=== PATIENT | female | born 1990 ===

== ENCOUNTER 2018-11-12 04:06 | Inpatient (IN) | payer OTHER ==
[2018-11-12] MEDS ORDERED: PITOCin/NS 20 UNIT/1000ML DRIP 20,000 MILLIUNITS/1,000 ML BAG IV ONE (04:45)
[2018-11-12 05:07] LABS: Basophils % (Auto) 0.3 % (0.0-1.8); Eosinophils # (Auto) 0.1 K/mm3 (0.0-0.4); Eosinophils % (Auto) 0.9 % (0.0-4.3); Hematocrit 35.3 % (30.3-42.9); Hemoglobin 12.3 gm/dl (10.1-14.3); Lymphocytes # (Auto) 3.3 K/mm3 (1.2-5.4); Lymphocytes % (Auto) 27.1 % (13.4-35.0); Mean Corpuscular HGB Conc 35 % (30-34); Mean Corpuscular Volume 87 fl (79-97); Monocytes # (Auto) 0.7 K/mm3 (0.0-0.8); Platelet Count 181 K/mm3 (140-440); Red Blood Count 4.05 M/mm3 (3.65-5.03); Red Cell Distribution Width 13.8 % (13.2-15.2)
--- NOTE | 2018-11-12 05:21 | History and Physical Report ---
History of Present Illness Date of examination: 11/12/18 Date of admission: 11/12/18 04:15 Chief complaint: contractions History of present illness: 28y/o @ 40+2 weeks presents in active labor with advanced cervical dilation of 10cm intact. The patient is from [place] and has not established care in the [facility]. She denies any complications during this . GBS is unknown. Past History Past Medical History: no pertinent history Past Surgical History: no surgical history Social history: single - Obstetrical History Expected Date of Delivery: 11/10/18 Actual Gestation: 40 Week(s) 2 Day(s) : 3 Para: 2 Hx # Term Pregnancies: 2 Number of Pregnancies: 0 Spontaneous Abortions: 0 Induced : 0 Number of Living Children: 2 Medications and Allergies Allergies Allergy/AdvReac Type Severity Reaction Status Date / Time No Known Allergies Allergy Unverified 11/12/18 04:50 Review of Systems All systems: negative Genitourinary: pelvic pain, contractions - Vital Signs Vital signs: Vital Signs Pulse BP 77 114/55 11/12/18 05:15 11/12/18 05:15 Temp Pulse Resp BP Pulse Ox 77 114/55 11/12/18 05:15 11/12/18 05:15 - Physical Exam Breasts: Positive: deferred Cardiovascular: Regular rate Lungs: Positive: Clear to auscultation Abdomen: Positive: normal appearance Results Result Diagrams: 11/12/18 04:25 Abnormal lab results 11/12/18 Range/Units 04:25 WBC 12.1 H (4.5-11.0) K/mm3 MCHC 35 H (30-34) % Seg Neutrophils # 7.9 H (1.8-7.7) K/mm3 All other labs normal. Assessment and Plan - Patient Problems (1) Active labor at term Current Visit: Yes Status: Acute Plan to address problem: admit to L&D
--- NOTE | 2018-11-12 05:24 | Procedure Note ---
OB Delivery Note - Delivery Date of Delivery: 11/12/18 Surgeon: MEG RODRIGUEZ Estimated blood loss: 100cc - Vaginal Delivery presentation: vertex Delivery position: OA Intrapartum events: none Delivery induction: AROM Delivery monitor: external FHT, external uterine Route of delivery: Delivery placenta: spontaneous Delivery cord: 3 umbilical vessels Episiotomy: none Delivery laceration: none Anesthesia: none Delivery comments: Patient progressed to C/C/+1 after AROM of clear fluid. She pushed to deliver a liveborn male with apgars of 9/9 with a weight of 8lbs 0oz. The shoulders delivered without difficulty. The infant was bulb suctioned. The cord was clamped and cut and the placed on the patient's abdomen. The placenta delivered spontaneously intact with a 3VC. No lacerations noted. EBL 100ml. - Infant A at 1 minute: 9 at 5 minutes: 9 Infant Gender: Male (weight 8lbs 0oz)
[2018-11-12] MEDS ORDERED: PHENERGAN PR PRN (05:28)
[2018-11-12] MEDS ORDERED: NORCO 5/325 PO PRN (05:28)
[2018-11-12] MEDS ORDERED: MILK OF MAGNESIA PO PRN (05:28)
[2018-11-12] MEDS ORDERED: PHENERGAN PO PRN (05:28)
[2018-11-12] MEDS ORDERED: BENADRYL PO PRN (05:28)
[2018-11-12] MEDS ORDERED: LANSINOH TP PRN (05:28)
[2018-11-12] MEDS ORDERED: ZOFRAN IV PRN (05:28)
[2018-11-12] MEDS ORDERED: TYLENOL PO PRN (05:28)
[2018-11-12] MEDS ORDERED: TUCKS PAD TP PRN (05:28)
[2018-11-12] MEDS ORDERED: DULCOLAX PR PRN (05:28)
[2018-11-12 05:30] LABS: Hepatitis C Virus Antibody Non-Reactive (NonReactive)
[2018-11-12] MEDS ORDERED: SODIUM CHLORIDE FLUSH SYRINGE 10 ML IV PRN (06:00)
[2018-11-12] MEDS: IBUPROFEN PO SCH ×3 (06:04→20:23)
[2018-11-12 16:33] LABS: Amphetamine Screen,Urine PRESUMPTIVE NEGATIVE; Benzodiazepines Screen,Urine PRESUMPTIVE NEGATIVE; Cannabinoid Screen,Urine PRESUMPTIVE NEGATIVE; Cocaine Screen,Urine PRESUMPTIVE NEGATIVE; Methadone Screen,Urine PRESUMPTIVE NEGATIVE; Opiate Screen,Urine PRESUMPTIVE NEGATIVE
[2018-11-12 18:26] LABS: Hematocrit 28.6 % (30.3-42.9); Hemoglobin 10.4 gm/dl (10.1-14.3)
[2018-11-13] MEDS: IBUPROFEN PO SCH ×4 (01:31→18:08)
--- NOTE | 2018-11-13 12:45 | Progress Note ---
Assessment and Plan - Patient Problems (1) Active labor at term Current Visit: Yes Status: Acute Plan to address problem: patient doing well discharge home Subjective - Subjective Date of service: 11/13/18 Interval history: Patient without complaints. Lochia is minimal. Patient reports: appetite normal, voiding normally, pain well controlled [place]: doing well Objective - Vital Signs Latest vital signs: Vital Signs Temp Pulse Resp BP BP Pulse Ox 11/13/18 07:37 98.1 F 74 20 96/52 96 11/13/18 00:21 98.2 F 78 20 120/77 97 11/12/18 20:23 18 11/12/18 16:48 98.1 F 63 18 127/68 Intake and Output 11/12/18 11/13/18 11/13/18 22:59 06:59 14:59 Intake Total 720 120 Output Total 1100 Balance -380 120 Intake: Oral 720 120 Output: Urine 1100 Void 1100 Other: Total, Intake Amount 240 120 Total, Output Amount 1100 # Voids Void 1 1 - Exam Uterus: Present: normal, firm - Labs Labs: Abnormal lab results 11/12/18 Range/Units 17:50 Hct 28.6 L D (30.3-42.9) %
--- NOTE | 2018-11-13 12:47 | Discharge Summary ---
Providers - Providers Date of Admission: 11/12/18 04:15 Date of discharge: 11/14/18 Attending physician: MEG RODRIGUEZ Primary care physician: [facility] Hospitalization Reason for admission: active labor Delivery: Discharge diagnosis: IUP at term delivered Hospital course: Patient admitted in active labor. transfer from [place]. Had a . uncomplicated Condition at discharge: Good Disposition: DC-01 TO HOME OR SELFCARE - Discharge Diagnoses (1) Active labor at term Status: Acute Plan - Discharge Medications Prescriptions: Ibuprofen [Motrin] 800 mg PO Q8HR PRN #60 tablet PRN Reason: Pain, Mild (1-3) HYDROcodone/APAP 5-325 [[place] 5/325] 1 each PO Q6HR PRN #20 tablet PRN Reason: Pain - Provider Discharge Summary Activity: no sex for 6 weeks, no heavy lifting 4 weeks, no strenuous exercise Diet: routine Instructions: routine Additional instructions: [] Smoking cessation referral if applicable(refer to patient education folder for contact #) [] Refer to [facility]'s [facility] Booklet Call your doctor immediately for: * Fever > 100.5 * Heavy vaginal bleeding ( >1 pad per hour) * Severe persistent headache * Shortness of breath * Reddened, hot, painful area to leg or breast * schedule visit in 4 weeks - Follow up plan
[2018-11-14] MEDS: IBUPROFEN PO SCH ×3 (00:29→09:18)
[2018-11-14 17:14] VITALS: BP 126/87
== END 2018-11-14 16:00 | disposition home or self-care (01) | DRG 807 ==
LOC: TRG 04:06 → LD 04:15 → TRG 04:30 → OB 07:32
PROVIDERS: ADMIT Obstetrics & Gynecology; ATTEND Obstetrics & Gynecology
PROC: 10E0XZZ Delivery of Products of Conception, External Approach (ICD-10-PCS; principal; 2018-11-12)
PROC: 10907ZC Drainage of Amniotic Fluid, Therapeutic from Products of Conception, Via Natural or Artificial Opening (ICD-10-PCS; 2018-11-12)
DX: O80 Encounter for full-term uncomplicated delivery (principal); Z37.0 Single live birth; Z3A.40 40 weeks gestation of pregnancy
CPT/HCPCS: 36415; 80307; 85014; 85018; 85025; 86592; 86706; 86762; 86803; 86850; 86900; 86901; 87806; G0378; J2590